=== PATIENT | female | born 1980 | race Caucasian/White ===

== ENCOUNTER 2019-10-08 08:48 | Emergency (ER) | payer MEDICAID, SELFPAY ==
[2019-10-08 09:09] VITALS: BP 140/89; PULSE 78; RESP 14; TEMP 36.7; O2SAT 98; BMI 18.2
--- NOTE | 2019-10-08 09:09 | XR_ITS ---
PROCEDURE: XR ELBOW RT MIN 3V CLINICAL INDICATION: elbow pain Medial pain and swelling following injury COMPARISON: No exams were available for comparison FINDINGS: No fracture or dislocation. No lytic or blastic change. There is normal mineralization. The joint spaces are well-preserved. No significant degenerative/arthritic changes. No erosive changes evident. Other findings:None. IMPRESSION: No acute findings. Dictated by: Sam Morales MD 10/08/2019 09:22 Electronically signed by Sam Morales MD in [place] 10/08/2019 09:22
--- NOTE | 2019-10-08 09:22 | [facility].EDGENADL ---
ED Disposition Clinical Impression: Right elbow pain Disposition: Home, Self-Care Condition on Discharge: Good Additional Instructions: Reviewing your x-ray, no injuries were noted to your elbow. I recommend that she continue to use ibuprofen Tylenol for pain control. Pain not significantly improve or resolve in the next few days I recommend following up with your primary care physician for repeat x-rays. Referrals: Mian Henry MD [Primary Care Provider] - - Critical Care Critical Care Time: No Attestation: On , the high probability of a clinically significant, sudden or life threatening deterioration of the following system(s) required my full and direct attention, intervention and personal management. The time I documented below is in addition to time spent performing reported procedures but includes the following listed in this critical care notation. Medical Decision Making - Sukhwinder Inquiry Pt receiving controlled substance: No Sukhwinder was queried for this patient: No Vital Signs: 10/08/19 09:09 Temperature 98.1 F Temperature Source Oral Pulse Rate [Left Radial] 78 Respiratory Rate 14 Blood Pressure [Left Arm] 140/89 Blood Pressure Mean [Left Arm] 106 Blood Pressure Source [Left Arm] Automatic Cuff Blood Pressure Position [Left Arm] Sitting 02 Sat by Pulse Oximetry 98 Oxygen Delivery Method Room Air Medical Decision Narrative: Summary patient is a well-appearing 39-year-old female presenting to the emergency department for evaluation of elbow pain. On exam there is mild tenderness on palpation of patient's right elbow, but no significant swelling, lacerations, ecchymosis, deformity, or evidence of dislocation. States that her pain is well managed and does not request any pain medication at this time. X-ray of patient's right elbow ordered. Patient's x-ray returns and shows no dislocation, or fracture. Patient discharged with instructions to continue using ibuprofen and Tylenol for pain control, and instructed to follow-up with primary care physician should pain not improve in the next few days. General Adult HPI - General Chief complaint: Extremity Injury, Upper Stated complaint: right arm fell on October 05 Time Seen by Provider: 10/08/19 09:10 Mode of Arrival: Ambulatory Limitations: No Limitations Description of Symptoms (Recalled from ER Triage Doc. by RN): PT C/O RT ELBOW PAIN/STIFFNESS. PT STATES THAT SHE FELL AND HIT HER RT ELBOW ON A SKI POLE WHILE ON THE BOAT ON 10/06/19 - History of Present Illness HPI narrative: Patient is a 39-year-old female who presents the emergency department for evaluation of a fall with elbow pain. Patient states on Tuesday working on her boat she had an accidental mechanical fall hitting her elbow on a pole. Patient denies any direct injury to her head. Loss of consciousness, or blood thinner use. Since the injury to her elbow patient is experienced swelling, and pain. Patient states her pain has improved and is now a 4 out of 10. Patient denies any radiation of pain. Pain is worsened with flexion and extension at the elbow, improved with rest. Improved with ibuprofen and Tylenol. Patient came to the emergency department seeking x-ray to make sure that her elbow was not dislocated. - Related Data Allergies Allergy/AdvReac Type Severity Reaction Status Date / Time ciprofloxacin [From Cipro] Allergy Verified 10/08/19 09:14 Penicillins Allergy Verified 10/08/19 09:14 [facility] History - Hepatitis A Screen Drug use history?: No High risk sexual behaviors?: No History of sexually transmitted infection?: No Currently employed?: No Childcare worker?: No Do you have indoor plumbing?: Yes Do you have electricity?: Yes Attestation statement:: This patient has been screened for Hepatitis A risk factors. Medical History: Denies:: Diabetes Mellitus Type 1, Diabetes Mellitus Type 2 - Social History Smoking Status: Current every day smoker Tobacco Typ
[2019-10-08 09:35] VITALS: BP 131/78; PULSE 79; RESP 16; TEMP 36.8; O2SAT 98
== END 2019-10-08 09:38 | disposition home or self-care (01) ==
PROVIDERS: Emergency Provider Emergency Medicine; PCP Nurse Practitioner
DX: M25.521 Pain in right elbow (principal); W01.198A Fall on same level from slipping, tripping and stumbling with subsequent striking against other object, initial encounter; Z88.0 Allergy status to penicillin; F17.210 Nicotine dependence, cigarettes, uncomplicated
CPT/HCPCS: 73080; 99282